=== PATIENT | male | born 1940 | race Caucasian/White ===

== ENCOUNTER → 2016-09-14 | Outpatient (CLI) | payer MEDICARE ==
[~2016-09-14] MED LIST: ASPIRIN ADULT L81 M3 PO; FENOFIBRATE MI134 MG PO; HYDROCODONE/ACE1 TA9 PO; LISINOPRIL 20MG20 MG PO; METOPROLOL TAR100 MG PO; NORCO 325 MG-51 TAB PO; PANTOPRAZOLE SO40 M1 PO; PRINIVIL20 MG NG; SIMVASTATIN40 MG PO
--- NOTE | 2016-09-14 16:11 | RADIOLOGY REPORT PS360 ---
US [id number] HISTORY: ELEVATED KIDNEY FUNCTION ORDERING PHYSICIAN: Steve Tejada MD PATIENT AGE: 76 years COMPARISON: None FINDINGS: The right kidney is 10 x 5 x 7 cm and has an unremarkable appearance. No hydronephrosis. No perinephric fluid collections. The left kidney is 12 x 6 x 5.5 cm. No hydronephrosis or renal mass apparent. Decreased echogenicity is present around the left kidney suggesting left perinephric fluid. IMPRESSION: Small amount of fluid in the left perinephric region otherwise negative bilateral renal ultrasound
== END ==
LOC: RAD 14:38
DX: R94.4 Abnormal results of kidney function studies (principal)